=== PATIENT | female | born 1955 | race Caucasian/White ===

== ENCOUNTER 2016-04-15 07:24 | Emergency (ER) | payer OTHER ==
[~2016-04-15] VITALS: Ht 157.5 cm; Wt 61.2 kg
[~2016-04-15 07:24] MED LIST: ACETAMINOPHEN-1 EAC1 ORAL; CEPHALEXIN500 MG ORAL; COLACE100 MG ORAL; GENTAMICIN SUL3.5 GM OP; METFORMIN HCL500 M1 ORAL; NKM; NORCO 5-325 TA1 EACH ORAL; OFLOXACIN10 ML BOTH EARS; TRAMADOL HCL50 MG ORAL
[2016-04-15 07:46] VITALS: BP 112/63
[2016-04-15] MEDS ORDERED: TAMIFLU75 MG ORAL (08:08)
[2016-04-15] MEDS ORDERED: IBUPROFEN600 MG ORAL (08:08)
[2016-04-15 08:20] VITALS: BP 112/63
--- NOTE | 2016-04-15 10:33 | Emergency Room Report ---
History of Present Illness General Chief Complaint: Upper Respiratory Illness Source: Patient Present Illness HPI 60-year-old female presents to ED complaining of bodyaches, chills, cough. States symptoms started yesterday. Noting low grade fever. States cough is dry. Notes generalized bodyaches, 5 out of 10, dull. No aggravating relieving factors. Denies sick contacts or recent travel. Did not receive flu vaccination this year. denies any other associated symptom Allergies: Coded Allergies: No Known Allergies (Unverified , 09/02/12) Patient History Past Medical History: DM Past Surgical History: none Pertinent Family History: none Social History: Denies: alcohol use, drug use, smoking Now: No Immunizations: UTD Reviewed Nursing Documentation: PMH: Agreed, PSxH: Agreed Nursing Documentation-PMH Hx Diabetes: Yes Review of Systems All Other Systems: negative except mentioned in HPI Physical Exam Vital Signs Date Time Temp Pulse Resp B/P Pulse Ox O2 Delivery O2 Flow Rate FiO2 04/15/16 07:32 100.2 98 18 112/63 99 Room Air Sp02 EP Interpretation: reviewed, normal General Appearance: no apparent distress, alert, GCS 15, non-toxic Head: normocephalic, atraumatic Eyes: bilateral eye PERRL, bilateral eye normal inspection ENT: hearing grossly normal, normal pharynx, no angioedema, normal voice Neck: full range of motion, supple/symm/no masses Respiratory: chest non-tender, lungs clear, normal breath sounds, speaking full sentences Cardiovascular #1: regular rate, rhythm, no edema Cardiovascular #2: 2+ carotid (R), 2+ carotid (L), 2+ radial (R), 2+ radial (L) , 2+ dorsalis pedis (R), 2+ dorsalis pedis (L) Gastrointestinal: normal bowel sounds, non tender, soft, non-distended, no guarding, no rebound Rectal: deferred Genitourinary: normal inspection, no CVA tenderness Musculoskeletal: back normal, gait/station normal, normal range of motion, non- tender Neurologic: alert, oriented x3, responsive, motor strength/tone normal, sensory intact, speech normal Psychiatric: judgement/insight normal, memory normal, mood/affect normal, no suicidal/homicidal ideation Reflexes: 3+ bicep (R), 3+ bicep (L), 3+ tricep (R), 3+ tricep (L), 3+ knee (R) , 3+ knee (L) Skin: normal color, no rash, warm/dry, well hydrated Lymphatic: no adenopathy Medical Decision Making Diagnostic Impression: Primary Impression: Flu-like symptoms ER Course Hospital Course 60-year-old F presents to ED complaining of fever + bodyaches + cough Differential diagnoses include: URI, pharyngitis, otitis media, influenza Clinical course Patient placed on stretcher. After initial history physical exam reveals an elderly female in no acute distress. Bilateral TM unremarkable, no pharyngeal erythema. Lungs clear. No CVA tenderness. Given motion in ED. Clinical findings consistent with influenza. Given that I will treat her with Tamiflu Diagnosis - influenza-like symptoms Stable and discharged home with prescriptions for tamiflu. drink plenty of fluids. Instructed to followup with PMD. Return to ED if symptoms recur or worsen Last Vital Signs Date Time Temp Pulse Resp B/P Pulse Ox O2 Delivery O2 Flow Rate FiO2 04/15/16 08:20 98.8 96 18 112/63 99 Room Air Status: improved Disposition: HOME, SELF-CARE Condition: Stable Scripts Ibuprofen* (MOTRIN*) 600 Mg Tablet 600 MG ORAL Q8H Y for For Pain, #30 TAB 0 Refills Prov: HERBERTH OCHOA M.D. 04/15/16 Oseltamivir Phosphate (Tamiflu) 75 Mg Capsule 75 MG ORAL TWICE A DAY for 5 Days, CAP Prov: HERBERTH OCHOA M.D. 04/15/16 Patient Instructions: Influenza, Adult, [id number] HERBERTH OCHOA M.D. Apr 15, 2016 10:33
== END 2016-04-15 08:20 | disposition home or self-care (01) ==
LOC: EMR 07:46
DX: J11.1 Influenza due to unidentified influenza virus with other respiratory manifestations (principal); E11.9 Type 2 diabetes mellitus without complications
CPT/HCPCS: 99284

== ENCOUNTER 2016-08-12 18:39 | Emergency (ER) | payer OTHER ==
[~2016-08-12] VITALS: Ht 157.5 cm; Wt 61.2 kg
[~2016-08-12 18:39] MED LIST changes: +IBUPROFEN600 MG ORAL; +TAMIFLU75 MG ORAL
[2016-08-12 19:00] VITALS: BP 110/57
[2016-08-12] MEDS ORDERED: Norco 5mg/325mg tab ORAL ONE (19:15)
[2016-08-12] MEDS ORDERED: BACTRIM DS TAB1 EAC1 ORAL (19:23)
[2016-08-12] MEDS ORDERED: IBUPROFEN600 MG ORAL (19:23)
--- NOTE | 2016-08-12 19:23 | Emergency Room Report ---
History of Present Illness General Chief Complaint: Skin Rash/Abscess Source: Patient Present Illness HPI 61 y/o female c/o nail bed infection in right index finger. States she had pain for 1 week and started having discharge and swelling today. States pain is moderate to severe and is worse with palpation and has no relieving factors. No other physical complaints. Denies trauma. Patient denies any numbness, tingling , pressure, paralysis, cyanosis, bruising, loss of sensation, or loss of range of motion. Allergies: Coded Allergies: No Known Allergies (Unverified , 09/02/12) Patient History Past Medical History: see triage record Past Surgical History: none Pertinent Family History: none Now: No Reviewed Nursing Documentation: PMH: Agreed, PSxH: Agreed Nursing Documentation-PMH Past Medical History: No History, Except For Hx Diabetes: Yes Review of Systems All Other Systems: negative except mentioned in HPI Physical Exam Vital Signs Date Time Temp Pulse Resp B/P Pulse Ox O2 Delivery O2 Flow Rate FiO2 08/12/16 18:47 99.0 92 16 110/57 97 Room Air Sp02 EP Interpretation: reviewed, normal General Appearance: no apparent distress, alert, GCS 15, non-toxic Head: normocephalic, atraumatic Eyes: bilateral eye normal inspection ENT: normal ENT inspection Neck: normal inspection Respiratory: normal breath sounds, speaking full sentences Cardiovascular #1: normal peripheral pulses, normal capillary refill Musculoskeletal: back normal, gait/station normal, normal range of motion, non- tender, calf tenderness Neurologic: alert, oriented x3, responsive, motor strength/tone normal, sensory intact, speech normal Skin: normal color, no rash, warm/dry, well hydrated, other - nailbed of right index finger is swollen, indurated, warm and with discharge w/o signs of abscess formation Lymphatic: no adenopathy Medical Decision Making PA Attestation Dr. Bates is my supervising physician with whom patient management has been discussed with. Diagnostic Impression: Primary Impression: Paronychia Qualified Codes: L03.011 - Cellulitis of right finger ER Course Pt. presents to the ED c/o right finger pain Ddx considered but are not limited to ingrowing nail, trauma, fracture, osteomyelitis, paronychia Vital signs: are WNL, pt. is afebrile H&PE are most consistent with paronychia ORDERS: none required at this time, the diagnosis is clinical ED INTERVENTIONS: [place] 5 DISCHARGE: At this time pt. is stable for d/c to home. Will provide printed patient care instructions, and any necessary prescriptions. Care plan and follow up instructions have been discussed with the patient prior to discharge. Last Vital Signs Date Time Temp Pulse Resp B/P Pulse Ox O2 Delivery O2 Flow Rate FiO2 08/12/16 19:00 99.0 69 16 110/57 97 Room Air Disposition: HOME, SELF-CARE Condition: Stable Scripts Trimethoprim/Sulfamethoxazole 160/800* (BACTRIM DS TABLET*) 1 Each Tablet 1 TAB ORAL TWICE A DAY, #14 TAB Prov: JO-ANN MCKENZIE P.A. 08/12/16 Ibuprofen* (MOTRIN*) 600 Mg Tablet 600 MG ORAL Q6H Y for For Pain, #30 TAB Prov: JO-ANN MCKENZIE P.A. 08/12/16 Patient Instructions: Paronychia Additional Instructions: Take medication as directed. Patient instructed to take ibuprofen and tylenol as needed for pain. Patient to return for wound check in 35 days either here, urgent care or with PCP. Advised patient to keep site of infection elevated above the level of their heart 3 or 4 times a day, for 30 minutes each time to help reduce swelling. Patient is to keep the infected area clean and dry. They can take a shower or bath, but be sure to pat the area dry with a towel afterward. Patient instructed to not put any antibiotic ointments or creams on the area. Patient should come back sooner if their symptoms do not get better within 3 days of starting treatment or if the red area gets bigger, more swollen , or more painful. JO-ANN MCKENZIE Aug 12, 2016 19:23
[2016-08-12 19:51] VITALS: BP 110/57
== END 2016-08-12 19:51 | disposition home or self-care (01) ==
LOC: EMR 19:25
DX: L03.011 Cellulitis of right finger (principal); E11.9 Type 2 diabetes mellitus without complications
CPT/HCPCS: 99284

== ENCOUNTER 2016-11-11 08:41 | Emergency (ER) | payer OTHER ==
[~2016-11-11] VITALS: Ht 157.5 cm; Wt 59.0 kg
[~2016-11-11 08:41] MED LIST changes: +BACTRIM DS TAB1 EAC1 ORAL
[2016-11-11 08:53] VITALS: BP 117/56
[2016-11-11] MEDS ORDERED: CLINDAMYCIN HC300 MG ORAL (09:08)
[2016-11-11] MEDS ORDERED: TYLENOL EXTRA500 MG ORAL (09:08)
[2016-11-11 09:22] VITALS: BP 117/56
--- NOTE | 2016-11-11 11:52 | Emergency Room Report ---
History of Present Illness General Chief Complaint: General Complaint Source: Patient Present Illness HPI 61-year-old female presents ED complaining of pain and swelling to the left index finger x2 days. Notes some redness and swelling around the nail bed. Pain is a 5/10, throbbing, nonradiating. Denies any fevers or chills. Denies discharge. No other aggravating or relieving factors. Denies any other associated symptoms Allergies: Coded Allergies: No Known Allergies (Unverified , 09/02/12) Patient History Past Medical History: DM Past Surgical History: none Pertinent Family History: none Social History: Denies: smoking, alcohol use, drug use Now: No Immunizations: UTD Reviewed Nursing Documentation: PMH: Agreed, PSxH: Agreed Nursing Documentation-PMH Hx Diabetes: Yes Review of Systems All Other Systems: negative except mentioned in HPI Physical Exam Vital Signs Date Time Temp Pulse Resp B/P (MAP) Pulse Ox O2 Delivery O2 Flow Rate FiO2 11/11/16 08:43 98.2 92 16 117/56 98 Room Air Sp02 EP Interpretation: reviewed, normal General Appearance: no apparent distress, alert, GCS 15, non-toxic Head: normocephalic Eyes: bilateral eye normal inspection, bilateral eye PERRL ENT: normal ENT inspection Neck: normal inspection Respiratory: normal inspection Cardiovascular #1: normal inspection Gastrointestinal: normal inspection Rectal: deferred Genitourinary: no CVA tenderness Musculoskeletal: swelling - erythema/swelling around nailbed on L index finger. no fluctuance or discharge Neurologic: alert, oriented x3, responsive, motor strength/tone normal, sensory intact, speech normal Psychiatric: normal inspection Skin: normal inspection Lymphatic: normal inspection Medical Decision Making Diagnostic Impression: Primary Impression: Paronychia ER Course Hospital Course 61-year-old F presents to ED s/p swelling L index finger. no trauma Clinical course Patient placed on stretcher. After initial history is full exam reveals a male in no acute distress. There is some swelling and fluctuance around the L index finger nailbed. Consistent with paronychia I explained to the patient that this requires drainage and antibiotics. Patient refuses drainage. Will agree to warm compresses and antibiotics Explained to the patient that this may not effectively treat her infection and she may need to return for drainage. Patient understands Diagnosis - paronychia Stable and discharged to home with prescription for Clindamycin. Warm compresses. Followup with PMD. Return to ED if any signs of infection develop Last Vital Signs Date Time Temp Pulse Resp B/P (MAP) Pulse Ox O2 Delivery O2 Flow Rate FiO2 11/11/16 09:22 98.2 16 117/56 98 Room Air 11/11/16 08:43 92 Status: improved Disposition: HOME, SELF-CARE Condition: Stable Scripts Clindamycin Hcl (CLINDAMYCIN HCL) 300 Mg Capsule 300 MG ORAL THREE TIMES A DAY, #21 CAP Prov: HERBERTH OCHOA M.D. 11/11/16 Acetaminophen* (TYLENOL EXTRA STRENGTH*) 500 Mg Tablet 500 MG ORAL Q8H Y for Prn Headache/Temp > 101, #30 TAB 0 Refills Prov: HERBERTH OCHOA M.D. 11/11/16 Referrals: [facility] (PCP) Patient Instructions: Paronychia, [id number] Additional Instructions: take abx. warm compresses. if symptoms do not improve return for incision and drainage HERBERTH OCHOA M.D. Nov 11, 2016 11:52
== END 2016-11-11 09:25 | disposition home or self-care (01) ==
LOC: EMR 09:02
DX: L03.012 Cellulitis of left finger (principal); E11.9 Type 2 diabetes mellitus without complications
CPT/HCPCS: 99284

== ENCOUNTER 2017-03-07 10:11 | Emergency (ER) | payer OTHER ==
[~2017-03-07] VITALS: Ht 157.5 cm; Wt 56.7 kg
[~2017-03-07 10:11] MED LIST changes: +CLINDAMYCIN HC300 MG ORAL; +TYLENOL EXTRA500 MG ORAL
--- NOTE | 2017-03-07 10:56 | Emergency Room Report ---
History of Present Illness General Chief Complaint: Sore Throat Source: Patient, Medical Record Present Illness HPI Patient presents with throat pain for > 1 week. Feverish. Aches. Slightly productive cough. No NVD, chest pain, rashes, dysuria, joint pain. Patient is diabetic and glucose controlled. Allergies: Coded Allergies: No Known Allergies (Unverified , 09/02/12) Patient History Past Medical History: see triage record Social History: Denies: smoking Social History Narrative at home Last Menstrual Period: 3 years ago Reviewed Nursing Documentation: PMH: Agreed, PSxH: Agreed Nursing Documentation-PMH Past Medical History: No History, Except For Hx Diabetes: Yes Review of Systems All Other Systems: negative except mentioned in HPI Physical Exam Vital Signs Date Time Temp Pulse Resp B/P (MAP) Pulse Ox O2 Delivery O2 Flow Rate FiO2 03/07/17 10:15 97.9 81 18 125/59 98 Room Air Sp02 EP Interpretation: reviewed, normal General Appearance: well appearing, no apparent distress Head: normocephalic, atraumatic Eyes: bilateral eye normal inspection, bilateral eye PERRL ENT: moist mucus membranes, pharyngeal erythema Neck: full range of motion, supple Respiratory: lungs clear, normal breath sounds, no respiratory distress, speaking full sentences Cardiovascular #1: regular rate, rhythm Gastrointestinal: normal inspection Musculoskeletal: digits/nails normal, gait/station normal, normal range of motion Neurologic: alert, normal gait, grossly normal Psychiatric: mood/affect normal Skin: no rash Medical Decision Making Diagnostic Impression: Primary Impression: Pharyngitis Qualified Codes: J02.9 - Acute pharyngitis, unspecified ER Course Patient presents with sore throat DDx: strep, viral, influenza amongst others. Not toxic. Course longer than expected for influenza. Will treat with antibiotics. Patient stable for outpatient observation and treatment. Last Vital Signs Date Time Temp Pulse Resp B/P (MAP) Pulse Ox O2 Delivery O2 Flow Rate FiO2 03/07/17 11:04 97.9 78 18 128/60 98 Room Air Status: unchanged Disposition: HOME, SELF-CARE Condition: Stable Scripts Chlorpheniramine Maleate (CHLOR-TRIMETON) 4 Mg Tablet 4 MG PO Q6HR Y for congestion, #10 TAB Prov: Jose Guadalupe Bates M.D. 03/07/17 Azithromycin* (ZITHROMAX*) 250 Mg Tablet 250 MG ORAL DAILY, #6 TAB 0 Refills Take two tables once daily for 1 day, then one tablet once daily for 4 days. Prov: Jose Guadalupe Bates M.D. 03/07/17 Jose Guadalupe Bates M.D. Mar 07, 2017 10:56
[2017-03-07] MEDS ORDERED: ZITHROMAX250 MG ORAL (10:57)
[2017-03-07] MEDS ORDERED: CHLOR-TRIMETON4 MG PO (10:57)
[2017-03-07 11:04] VITALS: BP 128/60
== END 2017-03-07 11:04 | disposition home or self-care (01) ==
LOC: EMR 10:50
DX: J02.9 Acute pharyngitis, unspecified (principal); E11.9 Type 2 diabetes mellitus without complications
CPT/HCPCS: 99283

== ENCOUNTER 2017-05-07 10:56 | Emergency (ER) | payer SELFPAY ==
[~2017-05-07] VITALS: Ht 157.5 cm; Wt 59.0 kg
[~2017-05-07 10:56] MED LIST changes: +CHLOR-TRIMETON4 MG PO; +ZITHROMAX250 MG ORAL
[2017-05-07] MEDS ORDERED: METFORMIN HCL1000 M1 ORAL (11:12)
[2017-05-07] MEDS ORDERED: IBUPROFEN600 MG ORAL (11:33)
[2017-05-07] MEDS ORDERED: TESSALON PERLE100 MG ORAL (11:33)
[2017-05-07 11:35] VITALS: BP 116/73
--- NOTE | 2017-05-07 11:50 | Emergency Room Report ---
History of Present Illness General Chief Complaint: Upper Respiratory Illness Source: Patient Present Illness HPI 61-year-old female presents with cough, runny nose for 5 days. Cough is productive with green phlegm. Pt still eating/drinking well. +sick contacts. No recent travel. No SOB, cp, abdominal pain, n/v/d. Allergies: Coded Allergies: No Known Allergies (Unverified , 09/02/12) Patient History Past Medical History: see triage record Past Surgical History: none Pertinent Family History: none Last Menstrual Period: Post Reviewed Nursing Documentation: PMH: Agreed, PSxH: Agreed Nursing Documentation-PMH Past Medical History: No History, Except For Hx Diabetes: Yes Review of Systems All Other Systems: negative except mentioned in HPI Physical Exam Vital Signs Date Time Temp Pulse Resp B/P (MAP) Pulse Ox O2 Delivery O2 Flow Rate FiO2 05/07/17 11:09 98.9 88 17 116/73 98 Room Air 99.0 Sp02 EP Interpretation: reviewed, normal General Appearance: normal inspection, well appearing, no apparent distress, alert, GCS 15, non-toxic Head: normocephalic, atraumatic Eyes: bilateral eye normal inspection, bilateral eye PERRL, bilateral eye EOMI ENT: normal ENT inspection, normal pharynx, normal voice, moist mucus membranes Neck: normal inspection, full range of motion, supple Respiratory: normal inspection, lungs clear, normal breath sounds, no respiratory distress, no retraction, no wheezing, speaking full sentences, chest symmetrical Cardiovascular #1: normal inspection, regular rate, rhythm, normal capillary refill Cardiovascular #2: 2+ radial (R), 2+ radial (L) Gastrointestinal: normal inspection, non tender, soft, non-distended, no guarding Musculoskeletal: normal inspection, back normal, normal range of motion, non- tender Neurologic: normal inspection, alert, oriented x3, responsive, motor strength/ tone normal, sensory intact, normal gait, speech normal Psychiatric: normal inspection, judgement/insight normal, memory normal Skin: normal inspection, normal color, no rash, warm/dry, well hydrated, normal turgor Medical Decision Making Diagnostic Impression: Primary Impression: Upper respiratory infection ER Course 61-year-old female p/w runny nose, cough Appears non- toxic, well hydrated, tolerating PO DDX: Viral URI / pneumonia Plan: Chest x-ray ER course: Pt stable in ED, remains nontoxic appearing, no sob. Tolerating PO Disposition: Patient discharged to home with Tessalon Perles and nasal spray Patient instructed to follow up with PMD in 1 week. Also instructed to take motrin/tylenol at home. Very strict return precautions discussed with patient such as intractable fever and chills, unable to eat or drink, severe chest pain or shortness of breath. Patient verbalized understanding and agrees with plan. Please note that this Emergency Department Report was dictated using [employer] duplicating machine operator technology software, occasionally this can lead to erroneous entry secondary to interpretation by the dictation equipment Chest X-ray CXR: Ordered: Yes 1 view Indication: Cough EP interpretation: Yes Interpretation: No consolidation, no effusion, no PTX, no acute cardiopulmonary disease Impression: No acute disease Electronically signed by Bora Butler MD Last Vital Signs Date Time Temp Pulse Resp B/P (MAP) Pulse Ox O2 Delivery O2 Flow Rate FiO2 05/07/17 11:35 99.0 17 116/73 98 Room Air 99.0 05/07/17 11:35 88 Disposition: HOME, SELF-CARE Condition: Improved Scripts Ibuprofen* (MOTRIN*) 600 Mg Tablet 600 MG ORAL Q8H Y for For Pain, #30 TAB 0 Refills Prov: Bora Butler M.D. 05/07/17 Benzonatate* (TESSALON PERLE*) 100 Mg Capsule 100 MG ORAL THREE TIMES A DAY, #21 PERLE Prov: Bora Butler M.D. 05/07/17 Referrals: NON PHYSICIAN (PCP) Patient Instructions: Upper Respiratory Infection, Adult Bora Butler M.D. May 07, 2017 11:50
--- NOTE | 2017-05-07 12:02 | Diagnostic Imaging Report ---
Indication: Dyspnea Comparison: None A single view chest radiograph was obtained. Findings: Cardiomediastinal appearance is within normal limits for age. Pulmonary vascularity is appropriate. The diaphragmatic contour is smooth and costophrenic angles are sharp. No pleural effusions are identified. The bones are osteopenic. Impression: No acute findings
[2017-05-07 12:06] VITALS: BP 120/73
== END 2017-05-07 12:10 | disposition home or self-care (01) ==
LOC: EMR 11:25
DX: J06.9 Acute upper respiratory infection, unspecified (principal); E11.9 Type 2 diabetes mellitus without complications
CPT/HCPCS: 71045; 99284

== ENCOUNTER 2017-09-15 06:54 | Emergency (ER) | payer OTHER ==
[~2017-09-15] VITALS: Ht 157.5 cm; Wt 59.0 kg
[~2017-09-15 06:54] MED LIST changes: +METFORMIN HCL1000 M1 ORAL; +TESSALON PERLE100 MG ORAL
--- NOTE | 2017-09-15 07:37 | Emergency Room Report ---
History of Present Illness General Chief Complaint: Earache Source: Patient Present Illness HPI Patient presents with 2 days of ear pain and sore throat. She rates the pain 8- 9/10 and constant and worse when she swallows. It's sharp and burning. Is also pressure in the ear. She took ibuprofen last night and this helped somewhat. She denies any high fevers or chills. There's no nausea vomiting or diarrhea. Her blood sugars have been in the 150-160 range and she takes metformin without insulin. She complains about left index finger pain. She's had a diagnosis of paronychia him in the past. There is no drainage at this time. Patient states there are changes in the nail. No chest pain, shortness of breath, wheezing, cough, nausea, vomiting, diarrhea or dysuria. There are no skin rashes. There's no headache. Allergies: Coded Allergies: No Known Allergies (Unverified , 09/02/12) Patient History Past Medical History: see triage record Social History: Denies: smoking, alcohol use, drug use Social History Narrative at home Last Menstrual Period: NA Reviewed Nursing Documentation: PMH: Agreed; PSxH: Agreed Nursing Documentation-PMH Past Medical History: No History, Except For Hx Diabetes: Yes Review of Systems All Other Systems: negative except mentioned in HPI Physical Exam Vital Signs Date Time Temp Pulse Resp B/P (MAP) Pulse Ox O2 Delivery O2 Flow Rate FiO2 09/15/17 07:16 98.9 84 18 123/68 94 Room Air 99.0 Sp02 EP Interpretation: reviewed, normal General Appearance: well appearing, no apparent distress Head: normocephalic, atraumatic Eyes: bilateral eye normal inspection, bilateral eye PERRL ENT: hearing grossly normal, normal voice, pharyngeal erythema, other - TM red and buldge, no pinna tenderness - R -- L normal Neck: full range of motion, supple Respiratory: chest non-tender, lungs clear, normal breath sounds, no respiratory distress, speaking full sentences Cardiovascular #1: regular rate, rhythm Cardiovascular #2: 2+ radial (R) Gastrointestinal: normal inspection, non tender Musculoskeletal: back normal, gait/station normal, normal range of motion Neurologic: alert, oriented x3, normal gait, grossly normal Psychiatric: mood/affect normal Skin: no rash Medical Decision Making Diagnostic Impression: Primary Impression: Otitis media Qualified Codes: H66.004 - Acute suppurative otitis media without spontaneous rupture of ear drum, recurrent, right ear Additional Impressions: Pharyngitis Qualified Codes: J02.9 - Acute pharyngitis, unspecified Paronychia Diabetes Qualified Codes: E11.9 - Type 2 diabetes mellitus without complications ER Course Patient presents with ear pain and throat pain. Physical exam is consistent with otitis media however other considerations are otitis externa. There are no exudates however the throat is quite red and antibiotics are indicated for this ear infection. She'll be given the first dose now. Her blood sugars are fairly well-controlled at home by history. In addition she has evidence of a paronychia him. There is no evidence that this needs to be drained. The other possibility is onycholysis and she'll be given 2 types of creams to use for the finger. The patient is stable for outpatient observation and treatment. Last Vital Signs Date Time Temp Pulse Resp B/P (MAP) Pulse Ox O2 Delivery O2 Flow Rate FiO2 09/15/17 07:49 98.9 18 123/68 94 Room Air 210.0 09/15/17 07:16 84 Status: improved Disposition: HOME, SELF-CARE Condition: Improved Scripts Bacitracin (Bacitracin) 28.4 Gm Oint...g. 1 APPLIC TOPIC BID, #20 GM Prov: Jose Guadalupe Bates M.D. 09/15/17 Terbinafine (Lamisil At) 12 Gm Cream..g. 1 APPL TOPIC BID, #20 GM apply to index finger with antibiotic ointment Prov: Jose Guadalupe Bates M.D. 09/15/17 Azithromycin* (ZITHROMAX*) 250 Mg Tablet 250 MG ORAL DAILY, #4 TAB Prov: Jose Guadalupe Bates M.D. 09/15/17 Tramadol Hcl* (ULTRAM*) 50 Mg Tablet 50 MG ORAL Q6H PRN for For Pain, #10 TAB 0 Refills Prov: Jose Guadalupe Bates M.D. 09/15/17 Referrals: [facility] (PCP) Jose Guadalupe Bates M.D. Sep 15, 2017 07:37
[2017-09-15] MEDS ORDERED: TRAMADOL HCL50 MG ORAL (07:42)
[2017-09-15] MEDS ORDERED: LAMISIL15 GM TOPIC (07:42)
[2017-09-15] MEDS ORDERED: BACITRACIN15 GM TOPIC (07:42)
[2017-09-15] MEDS ORDERED: ZITHROMAX250 MG ORAL (07:42)
[2017-09-15] MEDS ORDERED: Bacitracin Oint UD TOPIC ONE (07:45)
[2017-09-15] MEDS ORDERED: Azithromycin 250mg tab ORAL ONE (07:45)
[2017-09-15 07:49] VITALS: BP 123/68
== END 2017-09-15 08:03 | disposition home or self-care (01) ==
LOC: EMR 07:30
DX: H66.91 Otitis media, unspecified, right ear (principal); J02.9 Acute pharyngitis, unspecified; L03.012 Cellulitis of left finger; E11.9 Type 2 diabetes mellitus without complications; Z79.84 Long term (current) use of oral hypoglycemic drugs
CPT/HCPCS: 99284; Q0144

== ENCOUNTER 2017-09-30 12:10 | Emergency (ER) | payer OTHER ==
[~2017-09-30] VITALS: Ht 157.5 cm; Wt 60.8 kg
[~2017-09-30 12:10] MED LIST changes: +BACITRACIN15 GM TOPIC; +LAMISIL15 GM TOPIC
--- NOTE | 2017-09-30 12:53 | Emergency Room Report ---
History of Present Illness General Chief Complaint: Skin Rash/Abscess Source: Patient, Medical Record Present Illness HPI 62-year-old female presents to the emergency department complaining of itchy rash on the bilateral lower extremities from the knee down 5 days. Patient states that her also has similar symptoms. She denies pain. Patient denies fevers or chills. Pt. denies fevers, chills or swollen tender lymph nodes. Denies lesions/rashes elsewhere on the body. Denies new medications or body washes or creams. Denies swelling of the lips, tongue , throat or airway. Denies wheezing, or shortness of breath. Denies recent travel, recent illness or ill contacts. denies blisters, oral lesions, or sloughing of the skin Allergies: Coded Allergies: No Known Allergies (Unverified , 09/02/12) Patient History Past Medical History: see triage record Past Surgical History: none Pertinent Family History: none Last Menstrual Period: 3 yrs ago Reviewed Nursing Documentation: PMH: Agreed; PSxH: Agreed Nursing Documentation-PMH Past Medical History: No History, Except For Hx Diabetes: Yes Review of Systems All Other Systems: negative except mentioned in HPI Physical Exam Vital Signs Date Time Temp Pulse Resp B/P (MAP) Pulse Ox O2 Delivery O2 Flow Rate FiO2 09/30/17 12:15 98.1 89 18 121/67 97 Room Air 98.1 Sp02 EP Interpretation: reviewed, normal General Appearance: no apparent distress, alert, GCS 15, non-toxic Head: normocephalic, atraumatic Eyes: bilateral eye normal inspection, bilateral eye PERRL ENT: hearing grossly normal, normal voice, other - no swelling of the lips or the tongue Neck: full range of motion Respiratory: lungs clear, normal breath sounds, speaking full sentences Cardiovascular #1: regular rate, rhythm, no edema, normal capillary refill Musculoskeletal: back normal, gait/station normal, normal range of motion, non- tender Neurologic: alert, oriented x3, responsive, motor strength/tone normal, sensory intact, speech normal, grossly normal Psychiatric: judgement/insight normal Skin: normal color, warm/dry, well hydrated, rash - -multiple indurated papules , in a scattered distribution with wheel reaction surrounding, no increased temperature to palpation, no crusting, no blisters or vesicles Lymphatic: no adenopathy Medical Decision Making PA Attestation Dr. Pate is my supervising Physician whom patient management has been discussed with. Diagnostic Impression: Primary Impression: Insect bites Qualified Codes: W57.XXXA - Bitten or stung by nonvenomous insect and other nonvenomous arthropods, initial encounter ER Course 62-year-old female presents to the emergency department complaining of itchy rash on the bilateral lower extremities from the knee down 5 days. Patient states that her also has similar symptoms. She denies pain. Patient denies fevers or chills. Pt. denies fevers, chills or swollen tender lymph nodes. Denies lesions/rashes elsewhere on the body. Denies new medications or body washes or creams. Denies swelling of the lips, tongue , throat or airway. Denies wheezing, or shortness of breath. Denies recent travel, recent illness or ill contacts. denies blisters, oral lesions, or sloughing of the skin Ddx considered but are not limited to cellulitis, scabies, insect bites, tic bites, spider bites, contact dermatitis, Drug reaction, allergic reaction, fungal infection, lice. Vital signs: are WNL, pt. is afebrile H&PE are most consistent with Multiple insect bites of the lower extremity no evidence of infection no evidence of impending airway compromise or anaphylaxis. -multiple indurated papules, in a scattered distribution with wheel reaction surrounding, no increased temperature to palpation, no crusting, no blisters or vesicles ORDERS: none required at this time, the diagnosis is clinical ED INTERVENTIONS: None required at this time. DISCHARGE: At this time pt. is stable for d/c to home. Will provide printed patient care instructions, and any necessary prescriptions. Care plan and follow up instructions have been discussed with the patient prior to discharge. Last Vital Signs Date Time Temp Pulse Resp B/P (MAP) Pulse Ox O2 Delivery O2 Flow Rate FiO2 09/30/17 12:15 98.1 89 18 121/67 97 Room Air 98.1 Disposition: HOME, SELF-CARE Condition: Stable Referrals: [facility]ERR[facility] (PCP) Patient Instructions: Insect Bite Additional Instructions: Take medications as directed. Follow up with a Primary Care Provider in 3-5 days, even if your symptoms have resolved. --Please review list of primary care clinics, if you do not already have a primary care provider Return sooner to ED if new symptoms occur, or current symptoms become worse. Do not drink alcohol, drive, or operate heavy machinery while taking Hydroxyzine as this may cause drowsiness. - Please note that this Emergency Department Report was dictated using [employer] developer technology software, occasionally this can lead to erroneous entry secondary to interpretation by the dictation equipment. Rola Mcghee Sep 30, 2017 12:53
[2017-09-30] MEDS ORDERED: HYDROCORTISONE30 G2 TP (12:56)
[2017-09-30] MEDS ORDERED: ATARAX25 MG ORAL (12:56)
[2017-09-30] MEDS ORDERED: CEPHALEXIN500 MG ORAL (12:56)
[2017-09-30 13:07] VITALS: BP 121/67
== END 2017-09-30 13:07 | disposition home or self-care (01) ==
LOC: EMR 12:35
DX: S80.862A Insect bite (nonvenomous), left lower leg, initial encounter (principal); S80.861A Insect bite (nonvenomous), right lower leg, initial encounter; W57.XXXA Bitten or stung by nonvenomous insect and other nonvenomous arthropods, initial encounter; Y92.9 Unspecified place or not applicable; R21 Rash and other nonspecific skin eruption; E11.9 Type 2 diabetes mellitus without complications
CPT/HCPCS: 99283

== ENCOUNTER 2017-12-29 07:44 | Emergency (ER) | payer OTHER ==
[~2017-12-29] VITALS: Ht 157.5 cm; Wt 59.0 kg
[~2017-12-29 07:44] MED LIST changes: +ATARAX25 MG ORAL; +BACTRIM-DS1 EA ORAL; +DIFLUCAN100 MG ORAL; +GYNE-LOTRIMIN45 GM VG; +HYDROCORTISONE30 G2 TP
[2017-12-29 08:04] VITALS: BP 126/77
--- NOTE | 2017-12-29 08:08 | Emergency Room Report ---
History of Present Illness General Chief Complaint: Upper Respiratory Illness Source: Patient Present Illness HPI Patient returns with recurrent symptoms of bronchitis. She has nasal congestion and a cough. She denies any fevers or chills at this time. She is requesting antibiotics. In addition to that she's requesting cough medicine. She states that she was using nasal sprays last night but they have not been effective. She also is complaining about left knee pain. She states she has cartilage injury. Her doctors told her that antibiotics and also nonsteroidal anti- inflammatories we will destroy the cartilage in her leg. No nausea vomiting diarrhea chest pain headache rashes. She has a healing paronychia of the index finger. She claims that there is a fungus there and is requesting a cream for that. Allergies: Coded Allergies: No Known Allergies (Unverified , 09/02/12) Patient History Past Medical History: see triage record Social History: Denies: smoking Social History Narrative at home Last Menstrual Period: na Reviewed Nursing Documentation: PMH: Agreed; PSxH: Agreed Nursing Documentation-PMH Past Medical History: No History, Except For Hx Diabetes: Yes Review of Systems All Other Systems: negative except mentioned in HPI Physical Exam Vital Signs Date Time Temp Pulse Resp B/P (MAP) Pulse Ox O2 Delivery O2 Flow Rate FiO2 12/29/17 07:55 99.2 97 20 127/81 95 Room Air 99.1 Sp02 EP Interpretation: reviewed, normal General Appearance: well appearing, no apparent distress Head: normocephalic, atraumatic Eyes: bilateral eye normal inspection, bilateral eye PERRL ENT: hearing grossly normal, normal voice, moist mucus membranes, pharyngeal erythema, other - Nasal congestion Neck: full range of motion, supple Respiratory: no respiratory distress, speaking full sentences Cardiovascular #1: regular rate, rhythm Musculoskeletal: no calf tenderness, other - Wearing an neisha Neurologic: alert, normal gait, grossly normal Psychiatric: mood/affect normal Skin: no rash, other - healing paronychia Medical Decision Making Diagnostic Impression: Primary Impression: Upper respiratory infection Qualified Codes: J06.9 - Acute upper respiratory infection, unspecified Additional Impressions: Osteoarthritis Qualified Codes: M17.12 - Unilateral primary osteoarthritis, left knee Onycholysis ER Course Patient with URI. DDX: allergic, viral, bacterial. Symptomatic treatment indicated. Will also prescribe nasonex. Also has resolving paronychia. Concern over possible fungus. Will Rx for this. Discussed osteoarthritis. Patient stable for outpatient observation and treatment. Status: unchanged Disposition: HOME, SELF-CARE Condition: Improved Scripts Tolnaftate (Tolnaftate) 15 Gm Cream..g. 1 APPLIC TOPIC BID, #30 APPLIC Prov: Jose Guadalupe Bates M.D. 12/29/17 Chlorpheniramine Maleate (CHLOR-TRIMETON) 4 Mg Tablet 4 MG PO Q6HR PRN for congestion, #10 TAB Prov: Jose Guadalupe Bates M.D. 12/29/17 Mometasone Furoate (NASONEX) 17 Gm [place].pump 2 SPRAYS NASAL DAILY, #1 GM 0 Refills Prov: Jose Guadalupe Bates M.D. 12/29/17 Dextromethorphan Hb/Doxylamine (ROBITUSSIN NIGHTTIME COUGH DM) 237 Ml Liquid 5 ML PO Q6HR PRN for For Cough, #90 ML Prov: Jose Guadalupe Bates M.D. 12/29/17 Jose Guadalupe Bates M.D. Dec 29, 2017 08:08
[2017-12-29] MEDS ORDERED: NASONEX17 GM NASAL (08:12)
[2017-12-29] MEDS ORDERED: CHLOR-TRIMETON4 MG PO (08:12)
[2017-12-29] MEDS ORDERED: ROBITUSSIN NIG237 ML PO (08:12)
[2017-12-29 08:24] VITALS: BP 126/77
[2017-12-29] MEDS ORDERED: TINACTIN 1%1 APPLIC TOPIC (08:56)
== END 2017-12-29 08:24 | disposition home or self-care (01) ==
LOC: EMR 08:10
DX: J06.9 Acute upper respiratory infection, unspecified (principal); M17.12 Unilateral primary osteoarthritis, left knee; L60.1 Onycholysis; E11.9 Type 2 diabetes mellitus without complications
CPT/HCPCS: 99283

== ENCOUNTER 2018-02-26 07:31 | Emergency (ER) | payer OTHER ==
[~2018-02-26] VITALS: Ht 157.5 cm; Wt 61.2 kg
[~2018-02-26 07:31] MED LIST changes: +NASONEX17 GM NASAL; +ROBITUSSIN NIG237 ML PO; +TINACTIN 1%1 APPLIC TOPIC
[2018-02-26 07:43] VITALS: BP 123/62
--- NOTE | 2018-02-26 07:50 | Emergency Room Report ---
History of Present Illness General Chief Complaint: General Complaint Source: Patient Present Illness HPI This patient c/o pain right second toe about a day. No fever, no trauma. Can walk without difficulty. No similar history. Although she did have similar once on finger/nail and she is requesting antibiotics for today's problem. Allergies: Coded Allergies: No Known Allergies (Unverified , 09/02/12) Patient History Now: No Nursing Documentation-[facility] Past Medical History: No History, Except For Hx Diabetes: Yes Review of Systems All Other Systems: limited Physical Exam Vital Signs Date Time Temp Pulse Resp B/P (MAP) Pulse Ox O2 Delivery O2 Flow Rate FiO2 02/26/18 07:36 97.9 82 20 126/64 97 Room Air General Appearance: well appearing, no apparent distress Head: normocephalic, atraumatic ENT: hearing grossly normal, normal voice Neck: full range of motion, supple Respiratory: no respiratory distress, speaking full sentences Musculoskeletal: other - right second toe there is a small paronychia lateral half of toe at nail Neurologic: alert, normal gait Psychiatric: mood/affect normal Skin: no rash Medical Decision Making Diagnostic Impression: Primary Impression: Paronychia ER Course when I came back to room with scalpel and explained to patient that she needs a one second duration, tiny incision, patient refused she wants antibiotics antibiotics are not indicated, i offered again, she again refused and therefore she was d/c recommended to patient that she soak foot in warm water Last Vital Signs Date Time Temp Pulse Resp B/P (MAP) Pulse Ox O2 Delivery O2 Flow Rate FiO2 02/26/18 07:36 97.9 82 20 126/64 97 Room Air Status: unchanged Disposition: HOME, SELF-CARE Condition: Stable Patient Instructions: Kathryn [id number] Kishan Salazar M.D. Feb 26, 2018 07:50
== END 2018-02-26 08:00 | disposition home or self-care (01) ==
LOC: EMR 07:50
DX: L03.031 Cellulitis of right toe (principal); E11.9 Type 2 diabetes mellitus without complications
CPT/HCPCS: 99282